=== PATIENT | male | born 1965 | race Caucasian/White ===

== ENCOUNTER 2019-04-07 16:27 | Emergency (ER) | payer SELFPAY ==
[~2019-04-07] VITALS: Ht 172.7 cm; Wt 90.0 kg
[2019-04-07] MEDS ORDERED: KETOROLAC 30MG/ML VIAL IV STA (18:51)
[2019-04-07] MEDS ORDERED: ONDANSETRON HCL 4MG/2ML INJ IV STA (18:51)
[2019-04-07] MEDS ORDERED: SODIUM CHLORIDE 0.9% 1,000 ML IV ONE (18:51)
[2019-04-07] MEDS ORDERED: MORPHINE SULFATE 4 MG/ML CPJ (NOT FOR IM USE) IV STA (18:51)
[2019-04-07 19:09] LABS: BASOPHILS % 0.4 % (0.0-2.0); EOSINOPHILS % 0.1 % (0.0-5.0); HEMATOCRIT. 40.1 % (42.0-52.0); HEMOGLOBIN. 14.3 g/dL (14.0-18.0); LYMPHOCYTES % 14.3 % (20.0-50.0); MEAN CORPUSCULAR HEMOGLOBIN 33.5 pg (28.0-32.0); MEAN CORPUSCULAR VOLUME 94.3 fL (80.0-94.0); MEAN PLATELET VOLUME 7.2 fl (7.4-10.4); MONOCYTES % 3.6 % (2.0-8.0); NEUTROPHILS % 81.6 % (40.0-76.0); PLATELET 249 x1000/uL (130-400); RED BLOOD CELL COUNT 4.26 mill/uL (4.7-6.1); RED CELL DISTRIBUTION WIDTH 12.3 % (11.6-14.6)
[2019-04-07 19:15] LABS: CHLORIDE 103 mEq/L (98-107)
[2019-04-07 19:18] LABS: PROTHROMBIN TIME 10.3 sec (9.6-11.0)
[2019-04-07] MEDS ORDERED: LEVOFLOXACIN 500MG TABLET PO ONE (21:45)
[2019-04-07 21:56] LABS: CLARITY URINE CLEAR (CLEAR); COLOR URINE YELLOW (YELLOW); KETONES URINE NEGATIVE (NEGATIVE); LEUKOCYTE ESTERASE URINE NEGATIVE (NEGATIVE); NITRITE URINE NEGATIVE (NEGATIVE); OCCULT BLOOD URINE NEGATIVE (NEGATIVE); PH URINE 6.5 (4.5-8.0); PROTEIN URINE NEGATIVE (NEGATIVE); SPECIFIC GRAVITY URINE 1.004 (1.005-1.030); UROBILINOGEN URINE 0.2 E.U./dL (0.2-1.0)
[2019-04-07 23:49] VITALS: BP 151/105
== END 2019-04-07 23:53 | disposition home or self-care (01) ==
LOC: ER 16:27
DX: N30.90 Cystitis, unspecified without hematuria (principal); N43.3 Hydrocele, unspecified
CPT/HCPCS: 36415; 74176; 76870; 80053; 81003; 83690; 85025; 85610; 93976; 96361; 96374; 96375; 99284; J1885; J2270; J2405; J7030

== ENCOUNTER 2022-09-04 23:15 | Emergency (ER) | payer MEDICAID, OTHER ==
[~2022-09-04] VITALS: Ht 172.7 cm; Wt 98.1 kg
[2022-09-05] MEDS ORDERED: SODIUM CHLORIDE 0.9% 1,000 ML IV ONE (01:45)
[2022-09-05] MEDS ORDERED: MECLIZINE 25MG TABLET PO ONE (01:45)
[2022-09-05] MEDS ORDERED: ASPIRIN 81MG TABLET PO ONE (01:45)
[2022-09-05 02:14] LABS: CLARITY URINE CLEAR (CLEAR); COLOR URINE YELLOW (YELLOW); KETONES URINE NEGATIVE (NEGATIVE); LEUKOCYTE ESTERASE URINE NEGATIVE (NEGATIVE); NITRITE URINE NEGATIVE (NEGATIVE); OCCULT BLOOD URINE NEGATIVE (NEGATIVE); PROTEIN URINE NEGATIVE (NEGATIVE); SPECIFIC GRAVITY URINE 1.017 (1.005-1.030)
[2022-09-05 02:15] LABS: BASOPHILS % 0.3 % (0.0-2.0); EOSINOPHILS % 0.2 % (0.0-5.0); HEMATOCRIT. 42.9 % (42.0-52.0); HEMOGLOBIN. 14.7 g/dL (14.0-18.0); LYMPHOCYTES % 15.9 % (20.0-50.0); MEAN CORPUSCULAR VOLUME 96.1 fL (80.0-94.0); MEAN PLATELET VOLUME 7.6 fl (7.4-10.4); MONOCYTES % 6.7 % (2.0-8.0); NEUTROPHILS % 76.9 % (40.0-76.0); PLATELET 240 x1000/uL (130-400); RED BLOOD CELL COUNT 4.46 mill/uL (4.7-6.1); RED CELL DISTRIBUTION WIDTH 12.7 % (11.6-14.6)
[2022-09-05 02:24] LABS: CHLORIDE 100 mEq/L (98-107)
[2022-09-05 08:40] VITALS: BP 143/86
== END 2022-09-05 09:04 | disposition short-term general hospital (02) ==
LOC: ER 23:15
DX: I63.9 Cerebral infarction, unspecified (principal); R00.1 Bradycardia, unspecified; R94.31 Abnormal electrocardiogram [ECG] [EKG]
CPT/HCPCS: 36415; 70450; 71045; 80053; 81003; 83880; 84484; 85025; 93005; 99285; J7030; J8597; Z7610

== ENCOUNTER 2023-06-24 06:22 | Emergency (ER) | payer MEDICAID, OTHER ==
[~2023-06-24] VITALS: Ht 175.3 cm; Wt 91.0 kg
[2023-06-24 06:33] VITALS: BP 146/99; PULSE 64; RESP 16; TEMP 98.2; O2SAT 99
[2023-06-24] MEDS ORDERED: IBUP-2029 MT (08:47)
== END 2023-06-24 08:58 | disposition home or self-care (01) ==
LOC: ER 06:22
DX: T70.29XA Other effects of high altitude, initial encounter (principal); X58.XXXA Exposure to other specified factors, initial encounter
CPT/HCPCS: 99282